=== PATIENT | male | born 1995 | race Hispanic/Latino ===

== ENCOUNTER 2023-06-16 03:36 | Emergency (ER) | payer OTHER ==
[~2023-06-16] VITALS: Ht 167.6 cm; Wt 81.8 kg
[2023-06-16 04:37] LABS: BASO % 0.1 % (0.0-1.0); EOS # 0.1 10^3/uL (0.0-0.5); EOS % 0.8 % (0.0-3.0); HEMATOCRIT 43.9 % (42.0-52.0); HEMOGLOBIN 15.3 g/dl (13.5-17.5); LYMPH % 27.1 % (24.0-44.0); MEAN CORPUSCULAR HEMOGLOBIN 30.1 pg (27.0-33.0); MEAN CORPUSCULAR HGB CONC 34.9 g/dl (32.0-36.5); MEAN CORPUSCULAR VOLUME 86.2 fl (80.0-96.0); MONO # 0.6 10^3/uL (0.0-0.8); MONO % 7.6 % (2.0-8.0); NEUTROPHILS # 4.6 10^3/uL (1.5-8.5); NEUTROPHILS % 64.1 % (36.0-66.0); PLATELET COUNT, AUTOMATED 281 10^3/uL (150-450); RED BLOOD COUNT 5.09 10^6/uL (4.30-6.10); WHITE BLOOD COUNT 7.2 10^3/uL (4.0-10.0)
[2023-06-16 04:49] LABS: INR 1.09; PROTHROMBIN TIME 13.8 SECONDS (12.5-14.5)
[2023-06-16 05:17] LABS: LIPASE 21 U/L (12-53)
[2023-06-16 05:18] LABS: ETHYL ALCOHOL (ETHANOL) 0.159 % (0.000-0.010)
[2023-06-16 05:19] LABS: AMYLASE 26 U/L (30-118)
[2023-06-16 05:25] LABS: ALBUMIN 2.2 G/DL (3.2-5.2); ALKALINE PHOSPHATASE 29 U/L (46-116); ALT/SGPT 18 U/L (7.0-40); AST/SGOT 16 U/L (<34); BILIRUBIN,DIRECT 0.1 MG/DL (<0.4); BILIRUBIN,TOTAL 0.3 MG/DL (0.3-1.2); BLOOD UREA NITROGEN 6 MG/DL (9-23); CALCIUM LEVEL 4.4 MG/DL (8.5-10.1); CARBON DIOXIDE LEVEL 14 MMOL/L (20-31); CHLORIDE LEVEL 126 MMOL/L (98-107); CK-MB VALUE MASS < 1.0 NG/ML (<3.6); CPK CREATINE PHOSPHOKINASE 287 U/L (46-171); GLOMERULAR FILTRATION RATE > 60.0 (>60); GLUCOSE, FASTING 56 MG/DL (60-100); MB/CK RELATIVE INDEX 0.34 (< OR =4); SODIUM LEVEL 149 MMOL/L (136-145); TOTAL PROTEIN 3.9 G/DL (5.7-8.2)
[2023-06-16] MEDS ORDERED: POTASSIUM CHLORIDE 10% LIQ 20MEQ/15ML UDC PO ONE (05:25)
[2023-06-16] MEDS ORDERED: NS 1,000 ML IV ONE (05:25)
[2023-06-16] MEDS ORDERED: ISOVUE-370 76% 100ML VIAL As Ordered ONE (05:28)
[2023-06-16] MEDS ORDERED: UNRESOLVED CLARIFICATION ENTRY XX STA (05:34)
[2023-06-16] MEDS ORDERED: LR 1,000 ML IV ONE (05:35)
[2023-06-16 05:40] LABS: MAGNESIUM LEVEL 1.3 MG/DL (1.8-2.4)
[2023-06-16 05:43] LABS: ABG BASE EXCESS -4.2 (-2.0-2.0); ABG HCO3 20.6 MMOL/L (22.0-26.0); ABG O2 SATURATION 96.7 % (95.0-99.0); ABG PARTIAL PRESSURE CO2 37.3 mmHg (35.0-45.0); ABG PARTIAL PRESSURE O2 94.3 mmHg (75.0-100.0); ABG TOTAL CO2 21.7 MMOL/L (22.0-29.0)
[2023-06-16] MEDS ORDERED: MAG SULF 1GM/100ML (MAG RUN) 1 GM in IV 1 EA IV ONE (05:50)
[2023-06-16] MEDS ORDERED: CALCIUM GLUCONATE 1,000 MG in D5W MINI-BAG PLUS 100 ML IV ONE (05:50)
[2023-06-16] MEDS ORDERED: K-TA1TAB PO (07:17)
[2023-06-16 07:26] VITALS: BP 109/74; TEMP 97; O2SAT 100
[2023-06-16] MEDS ORDERED: POTASSIUM CHLORIDE 10MEQ SR TABLET PO ONE (07:30)
== END 2023-06-16 07:38 | disposition home or self-care (01) ==
LOC: M ED 03:36
DX: E87.6 Hypokalemia (principal); E83.51 Hypocalcemia; Z04.1 Encounter for examination and observation following transport accident
CPT/HCPCS: 36600; 70450; 71045; 71260; 72125; 80048; 80076; 82077; 82150; 82550; 82553; 82803; 83605; 83690; 83735; 84484; 85025; 85610; 85730; 86850; 86900; 86901; 93041; 94760; 96374; 96375; 99284; J0612; J3475; Q9967